=== PATIENT | male | born 1995 | race Caucasian/White ===

== ENCOUNTER 2017-03-08 13:16 | Emergency (ER) | payer OTHER ==
[~2017-03-08] VITALS: Ht 170.2 cm; Wt 69.4 kg
[~2017-03-08 13:16] MED LIST: MIRT7.5T8 PO
[2017-03-08 13:32] VITALS: BP 113/78
[2017-03-08] MEDS ORDERED: PRED20TA PO (13:49)
--- NOTE | 2017-03-08 13:49 | PHYS DOC ---
Past History Past Medical History: Bipolar Past Surgical History: No Surgical History Alcohol Use: None Drug Use: None Adult General Chief Complaint Chief Complaint: SKIN RASH/ABSCESS HPI HPI Patient is a 21-year-old male who presents with an itchy rash on his hands and arms. 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 It has been present for about a week and a half and is not getting better. It is itchy, not painful. It seems to be "spreading." Review of Systems Review of Systems Constitutional: Denies fever or chills [] Integument: As in history of present illness Allergies Allergies Allergies Coded Allergies Type Severity Reaction Last Updated Verified No Known Drug Allergies 05/06/15 No Physical Exam Physical Exam Constitutional: Well developed, well nourished, no acute distress, non-toxic appearance. [] HENT: Normocephalic, atraumatic, bilateral external ears normal, nose normal. [ ] Eyes: conjunctiva normal, no discharge. [] Neck: Normal range of motion, no stridor. [] Skin: Warm, dry, there is a red papular rash present on both hands and arms. There are areas of coalescent rash and areas of linear distribution. It appears consistent with contact dermatitis. Extremities: No tenderness, no cyanosis, no clubbing, ROM intact, no edema. [] Neurologic: Alert and oriented X 3, normal motor function, no focal deficits noted. [] Current Patient Data Vital Signs Vital Signs Date Time Temp Pulse Resp B/P (MAP) Pulse Ox O2 Delivery O2 Flow Rate FiO2 03/08/17 13:32 98.4 109 17 99 EKG EKG [] Radiology/Procedures Radiology/Procedures [] Course & Med Decision Making Course & Med Decision Making Pertinent Labs and Imaging studies reviewed. (See chart for details) 21-year-old male with an itchy rash that appears consistent with poison mónica. He does have possible exposure. See instructions for plan. [] Dragon Disclaimer Dragon Disclaimer This chart was dictated in whole or in part using Voice Recognition software in a busy, high-work load, and often noisy Emergency Department environment. It may contain unintended and wholly unrecognized errors or omissions. Departure Departure: Impression: Primary Impression: Contact dermatitis Disposition: 01 HOME, SELF-CARE Condition: STABLE Referrals: PAUL ROCHE DO (PCP) Patient Instructions: Poison Mónica, [id number] Scripts Prednisone (PREDNISONE) 20 Mg Tablet 2 TAB PO DAILY for poison mónica for 7 Days, #14 TAB Prov: KIMBERLY OLIVARES MD 03/08/17 KIMBERLY OLIVARES MD Mar 08, 2017 13:49
== END 2017-03-08 14:02 | disposition home or self-care (01) ==
LOC: ER 13:16
DX: L25.9 Unspecified contact dermatitis, unspecified cause (principal); F32.9 Major depressive disorder, single episode, unspecified
CPT/HCPCS: 99283

== ENCOUNTER 2018-02-07 03:21 | Emergency (ER) | payer OTHER ==
[~2018-02-07] VITALS: Ht 172.7 cm; Wt 65.8 kg
[~2018-02-07 03:21] MED LIST changes: +PRED20TA PO
--- NOTE | 2018-02-07 03:24 | ED.ADGEN ---
Past History Past Medical History: Bipolar, Schizophrenia Past Surgical History: No Surgical History, Other Smoking: Cigarettes Alcohol Use: None Drug Use: Amphetamine Adult General Chief Complaint Chief Complaint ... " I have not slept for two or really 3 days.. and I have Bipolar.. am getting really manic.. and seeing people and hearing mores code.. ".. " I ve been taking my Seroquel and Lamotrigine.. and I did start on Risperdal.. 0.25 ..but I only have taken two dosages.. I did do some Metadone ..I snorted.. it..... and that may have set me off...". " I see Dr. Louis and Dr. Sanchez.. for my Bipolar...".. " When I don't sleep. .. I start having thoughts.. and start seeing things... " HPI HPI Patient is a 22 year old male who presents with above hx and complaints exacerbation of his manic phase of his bipolar disorder. Patient reports compliance with his medications. Patient reports that he is having hallucinations of people. Patient also believes he has history of code transmissions any head. Pt. had insomnia and increase in agitation. Patient is normally fairly well controlled on his psych meds. Seroquel 25 tid, and Lamotrigine 200 a day. Patient recently started on low dose of Risperadol. 0.25mg. Patient did admit to snorting a drug . Patient denies any suicidal ideation. Patient denies any homicidal ideations. 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 Patient denies any travel. Patient denies any trauma. Patient denies any specific ill contacts. Patient appears to have good family support. Review of Systems Review of Systems Constitutional: Denies fever or chills [] Eyes: Denies change in visual acuity, redness, or eye pain [] HENT: Denies nasal congestion or sore throat [] Respiratory: Denies cough or shortness of breath [] Cardiovascular: No additional information not addressed in HPI [] GI: Denies abdominal pain, nausea, vomiting, bloody stools or diarrhea [] : Denies dysuria or hematuria [] Musculoskeletal: Denies back pain or joint pain [] Integument: Denies rash or skin lesions [] Neurologic: Denies headache, focal weakness or sensory changes []complaints of hallucinations and agitation. Endocrine: Denies polyuria or polydipsia [] All other systems were reviewed and found to be within normal limits, except as documented in this note. Family History Family History Noncontributory Current Medications Current Medications Current Medications Medications (Trade) Dose Ordered Sig/Dory Start Time Stop Time Status Last Admin Dose Admin Diphenhydramine HCl (Benadryl) 50 mg 1X ONCE 02/07/18 04:00 02/07/18 04:01 DC 02/07/18 04:25 50 MG Folic Acid (FOLIC ACID SYRINGE for ER) 5 mg STK-MED ONCE 02/07/18 03:56 02/07/18 03:57 DC Lorazepam (Ativan) 2 mg 1X ONCE 02/07/18 04:30 02/07/18 04:33 DC 02/07/18 04:29 2 MG Multivitamins/ Minerals (Infuvite Adult) 10 ml STK-MED ONCE 02/07/18 03:56 02/07/18 03:57 DC Multivitamins/ Minerals 10 ml/ Folic Acid 1 mg/ Thiamine HCl 100 mg/Sodium Chloride 1,011.1 ml @ 1,000 mls/ hr 1X ONCE 02/07/18 05:00 02/07/18 05:41 DC Multivitamins/ Minerals 10 ml/ Thiamine HCl 100 mg/Folic Acid 1 mg/Lactated Ringer's 1,011.2 ml @ 1,000 mls/ hr Q1H1M 02/07/18 04:30 02/07/18 05:30 Cancel Thiamine HCl 200 mg STK-MED ONCE 02/07/18 03:56 02/07/18 03:57 DC Ziprasidone (Geodon Im) 20 mg 1X ONCE 02/07/18 04:00 02/07/18 04:01 DC 02/07/18 04:25 20 MG Allergies Allergies Allergies Coded Allergies Type Severity Reaction Last Updated Verified No Known Drug Allergies 05/06/15 No Physical Exam Physical Exam Constitutional: Well developed, well nourished, in acute emotional distress, non -toxic appearance. [] HENT: Normocephalic, atraumatic, bilateral external ears normal, oropharynx moist, no oral exudates, nose normal. [] Eyes: PERRLA, EOMI, conjunctiva injected, no discharge. [] Neck: Normal range of motion, no tenderness, supple, no stridor. [] Cardiovascular: Tachycardia Heart rate regular rhythm, no murmur [] Lungs & Thorax: Bilateral breath sounds equal at apex with scattered wheezes auscultation [] Abdomen: Bowel sounds normal, soft, no tenderness, no masses, no pulsatile masses. [] Skin: Warm, dry, no erythema, no rash. [] Back: No tenderness, no CVA tenderness. [] Extremities: No tenderness, no cyanosis, no clubbing, ROM intact, no edema. [] Neurologic: Alert and oriented X 3, normal motor function, normal sensory function, no focal deficits noted. []DTRs +2 patella and brachial. Stitching Machine Feeder Or Offbearer equal. No drift. Patient ambulatory without problems. Psychologic: Affect anxious, judgement normal, mood normal. [] Current Patient Data Vital Signs Vital Signs Date Time Temp Pulse Resp B/P (MAP) Pulse Ox O2 Delivery O2 Flow Rate FiO2 02/07/18 03:49 99.1 104 16 98 Room Air Lab Results Laboratory Tests Test 02/07/18 03:30 02/07/18 03:45 Urine Collection Type Unknown Urine Color Yellow Urine Clarity Clear Urine pH 6.5 Urine Specific [place] 1.010 Urine Protein Neg (NEG-TRACE) Urine Glucose (UA) Neg mg/dL (NEG) Urine Ketones (Stick) Neg mg/dL (NEG) Urine Blood Neg (NEG) Urine Nitrite Neg (NEG) Urine Bilirubin Neg (NEG) Urine Urobilinogen Dipstick 0.2 mg/dL (0.2 mg/dL) Urine Leukocyte Esterase Neg (NEG) Urine RBC 0 /HPF (0-2) Urine WBC 1-4 /HPF (0-4) Urine Squamous Epithelial Cells Occ /LPF Urine Bacteria 0 /HPF (0-FEW) Urine Mucus Slight /LPF Urine Opiates Screen Neg (NEG) Urine Methadone Screen Neg (NEG) Urine Barbiturates Neg (NEG) Urine Phencyclidine Screen Neg (NEG) Urine Amphetamine/Methamphetamine Pos (NEG) Urine Benzodiazepines Screen Neg (NEG) Urine Cocaine Screen Neg (NEG) Urine Cannabinoids Screen Neg (NEG) Urine Ethyl Alcohol Neg (NEG) White Blood Count 7.7 x10^3/uL (4.0-11.0) Red Blood Count 5.02 x10^6/uL (4.30-5.70) Hemoglobin 16.9 g/dL (13.0-17.5) Hematocrit 47.8 % (39.0-53.0) Mean Corpuscular Volume 95 fL (79-100) Mean Corpuscular Hemoglobin 34 pg (25-35) Mean Corpuscular Hemoglobin Concent 35 g/dL (31-37) Red Cell Distribution Width 12.6 % (11.5-14.5) Platelet Count 333 x10^3/uL (140-400) Neutrophils (%) (Auto) 68 % (31-73) Lymphocytes (%) (Auto) 24 % (24-48) Monocytes (%) (Auto) 6 % (0-9) Eosinophils (%) (Auto) 2 % (0-3) Basophils (%) (Auto) 0 % (0-3) Neutrophils # (Auto) 5.2 x10^3uL (1.8-7.7) Lymphocytes # (Auto) 1.8 x10^3/uL (1.0-4.8) Monocytes # (Auto) 0.5 x10^3/uL (0.0-1.1) Eosinophils # (Auto) 0.1 x10^3/uL (0.0-0.7) Basophils # (Auto) 0.0 x10^3/uL (0.0-0.2) Sodium Level 137 mmol/L (136-145) Potassium Level 3.8 mmol/L (3.5-5.1) Chloride Level 103 mmol/L (98-107) Carbon Dioxide Level 29 mmol/L (21-32) Anion Gap 5 (6-14) L Blood Urea Nitrogen 10 mg/dL (8-26) Creatinine 0.9 mg/dL (0.7-1.3) Estimated GFR (Cockcroft-Gault) 104.6 Glucose Level 105 mg/dL (70-99) H Calcium Level 9.1 mg/dL (8.5-10.1) Magnesium Level 2.1 mg/dL (1.8-2.4) Ethyl Alcohol Level < 10 mg/dL (0-10) EKG EKG I interpretation EKG shows a sinus rhythm at 94 bpm. There is right next deviation. Some nonspecific contour abnormalities. But no findings acute STEMI of contralateral changes.[] Radiology/Procedures Radiology/Procedures [] Course & Med Decision Making Course & Med Decision Making Pertinent Labs and Imaging studies reviewed. (See chart for details) Patient avoid further illicit drug use. Patient to take meds as previous directed. Patient follow-up with his counselor Dr. Louis and Dr. Sanchez 's psychiatrist. Patient push fluids. Patient had adequate rest. [] Final Impression Final Impression 1. Bipolar 2. Schizoaffective / Schizophrenic- presentation with exacerbations of Bipolar 3. Hallucinations 4. Tobacco use 5. Substance Abuse Hx. []+ Meth/Amphetamine Urine Test Dragon Disclaimer Dragon Disclaimer This electronic medical record was generated, in whole or in part, using a voice recognition dictation system. AKBAR SCHMIDT MD Feb 07, 2018 03:24
[2018-02-07 03:49] VITALS: BP 125/84
--- NOTE | 2018-02-07 03:52 | EKG ---
[address] [address] Test Date: 2018-02-07 Test Time: 03:48:43 Pat Name: CHANTALE BLANCHARD Department: Room: Gender: M Globe Tester: : 1995 Requested By: AKBAR SCHMIDT Order Number: [id number] Reading MD: Dhiraj Morillo Measurements Intervals Mora Rate: 94 P: 155 PA: 124 QRS: 154 QRSD: 92 T: 151 QT: 330 QTc: 418 Interpretive Statements SINUS RHYTHM MISSING LEADS ABNORMAL RIGHT AXIS DEVIATION QRS(T) CONTOUR ABNORMALITY CONSIDER HIGH LATERAL MYOCARDIAL DAMAGE ABNORMAL ECG Electronically Signed On 02-08-2018 11:24:27 CDT by Dhiraj Morillo
[2018-02-07] MEDS ORDERED: THIAMINE 200 MG/2 ML VIAL. IV ONE (03:56)
[2018-02-07] MEDS ORDERED: FOLIC ACID 5 MG/ML SYRINGE for ER IV ONE (03:56)
[2018-02-07] MEDS ORDERED: MVI, ADULT NO.4 WITH VIT K 10 ML VIAL IV ONE (03:56)
[2018-02-07] MEDS ORDERED: ZIPRASIDONE IM 20 MG VIAL. IM ONE (04:00)
[2018-02-07] MEDS ORDERED: diphenhydrAMINE 50 MG/ML VIAL IV ONE (04:00)
[2018-02-07] MEDS ORDERED: MVI, ADULT NO.4 WITH VIT K 10 ML, FOLIC ACID SYRINGE for ER 1 MG, THIAMINE INJ 100 MG i... IV ONE ×8 (04:00→05:00)
[2018-02-07 04:01] LABS: BASO % 0 % (0-3); EOS # 0.1 x10^3/uL (0.0-0.7); EOS % 2 % (0-3); HEMATOCRIT 47.8 % (39.0-53.0); HEMOGLOBIN 16.9 g/dL (13.0-17.5); LYMPH # 1.8 x10^3/uL (1.0-4.8); LYMPH % 24 % (24-48); MEAN CORPUSCULAR HEMOGLOBIN 34 pg (25-35); MEAN CORPUSCULAR HGB CONC 35 g/dL (31-37); MEAN CORPUSCULAR VOLUME 95 fL (79-100); MONO # 0.5 x10^3/uL (0.0-1.1); MONO % 6 % (0-9); NEUT # 5.2 x10^3uL (1.8-7.7); NEUT % 68 % (31-73); PLATELET COUNT 333 x10^3/uL (140-400); RED BLOOD COUNT 5.02 x10^6/uL (4.30-5.70); RED CELL DISTRIBUTION WIDTH 12.6 % (11.5-14.5); WHITE BLOOD COUNT 7.7 x10^3/uL (4.0-11.0)
[2018-02-07 04:09] LABS: CLARITY,URINE CLEAR; COLOR,URINE YELLOW
[2018-02-07 04:09] LABS: CALCIUM 9.1 mg/dL (8.5-10.1); CREATININE 0.9 mg/dL (0.7-1.3); GFR 104.6; MAGNESIUM 2.1 mg/dL (1.8-2.4); POTASSIUM 3.8 mmol/L (3.5-5.1)
[2018-02-07 04:10] LABS: BACTERIA,URINE 0 /HPF (0-FEW); BILIRUBIN,URINE NEG (NEG); GLUCOSE,URINE NEG (NEG); NITRITE,URINE NEG (NEG); RBC,URINE 0 /HPF (0-2); SQUAMOUS EPITHELIAL CELL,UR OCC /LPF; UROBILINOGEN,URINE 0.2 mg/dL (0.2 mg/dL)
[2018-02-07 04:11] LABS: BARBITURATES NEG (NEG); BENZODIAZEPINES NEG (NEG); CANNABINOIDS NEG (NEG); COCAINE NEG (NEG); METHADONE NEG (NEG); OPIATES NEG (NEG); PHENCYCLIDINE NEG (NEG)
[2018-02-07 04:14] LABS: AMPHETAMINE/METHAMPHETAMINE POS (NEG)
[2018-02-07] MEDS ORDERED: LORazepam 2 MG/ML VIAL IV ONE (04:30)
[2018-02-07] MEDS ORDERED: [UNRECOGNIZED DRUG - REMARK] IV SCH ×4 (04:30)
== END 2018-02-07 05:35 | disposition home or self-care (01) ==
LOC: ER 03:21
DX: F25.0 Schizoaffective disorder, bipolar type (principal); F15.10 Other stimulant abuse, uncomplicated; F17.210 Nicotine dependence, cigarettes, uncomplicated
CPT/HCPCS: 36415; 80048; 80307; 81001; 83735; 85025; 93005; 96372; 96374; 96375; 99285; G0480; J1200; J2060; J3486; G0479

== ENCOUNTER 2018-05-11 11:30 | Emergency (ER) | payer OTHER ==
[~2018-05-11] VITALS: Ht 172.7 cm; Wt 68.0 kg
[2018-05-11 11:49] VITALS: BP 76/84
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
== END 2018-05-11 12:27 | disposition home or self-care (01) ==
LOC: ER 11:30
DX: S60.410A Abrasion of right index finger, initial encounter (principal); S60.412A Abrasion of right middle finger, initial encounter; S60.414A Abrasion of right ring finger, initial encounter; F31.9 Bipolar disorder, unspecified; F20.9 Schizophrenia, unspecified; F17.210 Nicotine dependence, cigarettes, uncomplicated; W22.8XXA Striking against or struck by other objects, initial encounter; Y93.89 Activity, other specified; Y92.89 Other specified places as the place of occurrence of the external cause; Y99.8 Other external cause status
CPT/HCPCS: 29130; 73130; 99283

== ENCOUNTER 2018-08-10 17:11 | Emergency (ER) | payer OTHER ==
[~2018-08-10] VITALS: Ht 172.7 cm; Wt 68.0 kg
[2018-08-10 17:16] VITALS: BP 103/64
[2018-08-10] MEDS ORDERED: FLUORESCEIN 1MG EYE STRIP. OU ONE (17:45)
[2018-08-10] MEDS ORDERED: TETRACAINE 0.5% OPHTH SOLUTION 4ML BOTTLE. OU ONE (17:45)
[2018-08-10] MEDS ORDERED: ERYT1OIN6 OP (17:49)
--- NOTE | 2018-08-10 17:50 | PHYS DOC ---
Past History Past Medical History: Alcoholism, Depression Past Surgical History: Other Smoking: Cigarettes Additional Smoking Information: 05/28 PPD Alcohol Use: None Drug Use: Marijuana Social History Narrative: daily Adult General Chief Complaint Chief Complaint: EYE PROBLEMS HPI HPI Patient is a 23-year-old male who presents to the emergency department for evaluation. 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 He has a foreign body sensation, tried using a Q-tip to remove the foreign body without success. His last tetanus was about 4 months ago. He denies any other complaints at this time. He denies any definite vision changes. Review of Systems Review of Systems Constitutional: Denies fever or chills [] Eyes: No additional information not addressed in HPI [] Current Medications Current Medications Current Medications Medications (Trade) Dose Ordered Sig/Dory Start Time Stop Time Status Last Admin Dose Admin Fluorescein Sodium (Ful-Libertad 1mg) 1 strip 1X ONCE 08/10/18 17:45 08/10/18 17:46 Tetracaine HCl (Tetracaine) 1 drop 1X ONCE 08/10/18 17:45 08/10/18 17:46 Allergies Allergies Allergies Coded Allergies Type Severity Reaction Last Updated Verified No Known Drug Allergies 05/06/15 No Physical Exam Physical Exam PHYSICAL EXAM: HEENT: PERRL, EOMI, there is mild bilateral conjunctival injection. There is a small punctate metallic foreign body seen at 3:00 to the pupil, overlying the iris. This does not overlie the visual axis. There is no other foreign body visualized. On fluorescein examination there is a small corneal abrasion surrounding the visualized foreign body, no other abrasions are noted. NECK: Supple, normal ROM, non-tender. CARDIAC: Regular Rate and Rhythm LUNGS: Clear Bilaterally EXTREMITIES: No acute abnormality. Current Patient Data Vital Signs Vital Signs Date Time Temp Pulse Resp B/P (MAP) Pulse Ox O2 Delivery O2 Flow Rate FiO2 08/10/18 17:16 97.9 105 20 96 Room Air EKG EKG [] Radiology/Procedures Radiology/Procedures [] Course & Med Decision Making Course & Med Decision Making The patient's right eye was anesthetized with tetracaine drops, and an 18-gauge needle was used, and the foreign body was removed on the first attempt to take the object. There appears to be a tiny residual dark area overlying the site, I cannot exclude either a small residual foreign body, or rust ring. I did discuss importance of close ophthalmology follow-up with the patient and return precautions in detail. Dragon Disclaimer Dragon Disclaimer This electronic medical record was generated, in whole or in part, using a voice recognition dictation system. Departure Departure: Impression: Primary Impression: Corneal foreign body Additional Impression: Corneal abrasion Disposition: HOME, SELF-CARE Condition: STABLE Referrals: PAUL ROCHE DO (PCP) Patient Instructions: Eye - Corneal Abrasion, Eye - Corneal Foreign Body Additional Instructions: It is important that you get close follow-up with an miner helper. Call Dr. Juan, tomorrow morning to schedule the first available appointment. Scripts Erythromycin Base (Erythromycin) 1 Gm Oint...g. 1 GM OP Q4HRS W/A for - for 5 Days, #1 MISC Prov: HEMA ESPINO MD 08/10/18 Problem Qualifiers HEMA ESPINO MD Aug 10, 2018 17:50
== END 2018-08-10 17:59 | disposition home or self-care (01) ==
LOC: ER 17:11
DX: T15.01XA Foreign body in cornea, right eye, initial encounter (principal); F10.20 Alcohol dependence, uncomplicated; F32.9 Major depressive disorder, single episode, unspecified; F17.210 Nicotine dependence, cigarettes, uncomplicated; Y90.9 Presence of alcohol in blood, level not specified; Y29.XXXA Contact with blunt object, undetermined intent, initial encounter; Y93.89 Activity, other specified; Y92.89 Other specified places as the place of occurrence of the external cause; Y99.8 Other external cause status
CPT/HCPCS: 65220; 99284-25

== ENCOUNTER 2019-01-08 23:23 | Emergency (ER) | payer OTHER ==
[~2019-01-08] VITALS: Ht 172.7 cm; Wt 62.6 kg
[~2019-01-08 23:23] MED LIST changes: +ERYT1OIN6 OP
--- NOTE | 2019-01-09 00:29 | PHYS DOC ---
Past History Past Medical History: Alcoholism, Depression Past Surgical History: Other Smoking: Cigarettes Alcohol Use: None Drug Use: Marijuana Adult General Chief Complaint Chief Complaint: DRUG ABUSE HPI HPI 23-year-old male presents after drug use. The patient states he took a pill at 9 AM that he thought was ecstasy. This is about 14 hours ago. The patient presents to the emergency room because he does not think it was ecstasy. He feels it might of been an upper and he was sent out what he took. He is feeling "hyped up". He has rapid heartbeat. Patient denies any other drug use today. Patient has a history of drug use. He denies any other symptoms or complaints. Review of Systems Review of Systems Constitutional: Denies fever or chills [] Eyes: Denies change in visual acuity, redness, or eye pain [] HENT: Denies nasal congestion or sore throat [] Respiratory: Denies cough or shortness of breath [] Cardiovascular: No additional information not addressed in HPI [] GI: Denies abdominal pain, nausea, vomiting, bloody stools or diarrhea [] : Denies dysuria or hematuria [] Musculoskeletal: Denies back pain or joint pain [] Integument: Denies rash or skin lesions [] Neurologic: Denies headache, focal weakness or sensory changes [] Endocrine: Denies polyuria or polydipsia [] All other systems were reviewed and found to be within normal limits, except as documented in this note. Current Medications Current Medications Current Medications Medications (Trade) Dose Ordered Sig/Dory Start Time Stop Time Status Last Admin Dose Admin Sodium Chloride 1,000 ml @ 1,000 mls/hr 1X ONCE 01/09/19 00:30 01/09/19 01:29 Allergies Allergies Allergies Coded Allergies Type Severity Reaction Last Updated Verified No Known Drug Allergies 05/06/15 No Physical Exam Physical Exam Constitutional: Well developed, well nourished, no acute distress, non-toxic appearance. [] HENT: Normocephalic, atraumatic, bilateral external ears normal, oropharynx moist, no oral exudates, nose normal. [] Eyes: PERRLA, EOMI, conjunctiva normal, no discharge. [] Neck: Normal range of motion, no tenderness, supple, no stridor. [] Cardiovascular:Heart rate regular rhythm, no murmur [] Lungs & Thorax: Bilateral breath sounds clear to auscultation [] Abdomen: Bowel sounds normal, soft, no tenderness, no masses, no pulsatile masses. [] Skin: Warm, dry, no erythema, no rash. [] Back: No tenderness, no CVA tenderness. [] Extremities: No tenderness, no cyanosis, no clubbing, ROM intact, no edema. [] Neurologic: Alert and oriented X 3, normal motor function, normal sensory functi on, no focal deficits noted. [] Psychologic: Affect pressured, judgement normal, mood normal. [] EKG EKG [] Radiology/Procedures Radiology/Procedures [] Course & Med Decision Making Course & Med Decision Making Pertinent Labs and Imaging studies reviewed. (See chart for details) The patient's toxicology is positive for amphetamine and marijuana. His labs are unremarkable. He is stable for discharge at this time. [] Dragon Disclaimer Dragon Disclaimer This electronic medical record was generated, in whole or in part, using a voice recognition dictation system. Departure Departure: Impression: Primary Impression: Marijuana use Additional Impression: Methamphetamine abuse Disposition: 01 HOME, SELF-CARE Condition: STABLE Referrals: PAUL ROCHE DO (PCP) Patient Instructions: Methamphetamine Abuse, Complications Problem Qualifiers MORGAN RAMON DO Jan 09, 2019 00:29
[2019-01-09 00:31] LABS: BARBITURATES NEG (NEG); BENZODIAZEPINES NEG (NEG); CANNABINOIDS POS (NEG); COCAINE NEG (NEG); METHADONE NEG (NEG); OPIATES NEG (NEG); PHENCYCLIDINE NEG (NEG)
[2019-01-09] MEDS: IV NORMAL SALINE 1,000ML 1,000 ML IV ONE (00:32)
[2019-01-09 00:33] LABS: AMPHETAMINE/METHAMPHETAMINE POS (NEG)
[2019-01-09 00:47] LABS: BILIRUBIN,URINE NEG (NEG); CLARITY,URINE HAZY; COLOR,URINE YELLOW; GLUCOSE,URINE NEG (NEG)
[2019-01-09 00:48] LABS: BACTERIA,URINE FEW /HPF (0-FEW); HYALINE CASTS, URINE FEW /HPF; NITRITE,URINE NEG (NEG); SQUAMOUS EPITHELIAL CELL,UR FEW /LPF; UROBILINOGEN,URINE 0.2 mg/dL (0.2 mg/dL)
[2019-01-09 00:58] LABS: BASO % 0 % (0-3); EOS % 0 % (0-3); HEMATOCRIT 45.4 % (39.0-53.0); HEMOGLOBIN 16.1 g/dL (13.0-17.5); LYMPH # 1.2 x10^3/uL (1.0-4.8); LYMPH % 12 % (24-48); MEAN CORPUSCULAR HEMOGLOBIN 34 pg (25-35); MEAN CORPUSCULAR HGB CONC 35 g/dL (31-37); MEAN CORPUSCULAR VOLUME 96 fL (79-100); MONO # 0.5 x10^3/uL (0.0-1.1); MONO % 5 % (0-9); NEUT # 8.3 x10^3uL (1.8-7.7); NEUT % 83 % (31-73); PLATELET COUNT 295 x10^3/uL (140-400); RED BLOOD COUNT 4.72 x10^6/uL (4.30-5.70); RED CELL DISTRIBUTION WIDTH 12.8 % (11.5-14.5); WHITE BLOOD COUNT 10.1 x10^3/uL (4.0-11.0)
[2019-01-09 01:07] LABS: ALBUMIN 4.2 g/dL (3.4-5.0); ALBUMIN/GLOBULIN RATIO 1.1 (1.0-1.7); CALCIUM 9.5 mg/dL (8.5-10.1); GFR 91.8; POTASSIUM 3.7 mmol/L (3.5-5.1); TOTAL BILIRUBIN 0.7 mg/dL (0.2-1.0)
[2019-01-09 01:12] VITALS: BP 138/93
== END 2019-01-09 01:30 | disposition home or self-care (01) ==
LOC: ER 23:23
DX: F12.10 Cannabis abuse, uncomplicated (principal); F15.10 Other stimulant abuse, uncomplicated; F17.210 Nicotine dependence, cigarettes, uncomplicated; F10.20 Alcohol dependence, uncomplicated; Y90.9 Presence of alcohol in blood, level not specified
CPT/HCPCS: 36415; 80053; 80307; 81001; 85025; 87086; 96374; 99284; J2060; 96361; J7030

== ENCOUNTER 2020-11-19 22:56 | Emergency (ER) | payer SELFPAY ==
[~2020-11-19] VITALS: Ht 172.7 cm; Wt 63.6 kg
[2020-11-19] MEDS ORDERED: LIDOCAINE/EPI/TETRACAINE TOPICAL GEL 3 ML. TP ONE ×2 (23:15→23:24)
[2020-11-20 00:55] VITALS: BP 91/42
--- NOTE | 2020-11-20 00:55 | PHYS DOC ---
Past History Past Medical History: Bipolar, Depression Past Surgical History: No Surgical History Smoking: Cigarettes Alcohol Use: None Drug Use: Amphetamine, Marijuana, Other Adult General Chief Complaint Chief Complaint: LOWEREXTREMITY INJURY HPI HPI Patient is a 25-year-old male, up-to-date on tetanus who presents for ankle laceration. States he was out drinking with friends, and was getting ready get into his truck and stepped wrong and scraped his ankle on the curb. Denies any other injuries. States since he has been drinking vodka and was intoxicated his friend said to be better to call the ambulance to bring him to the emergency department instead of letting him drive. Review of Systems Review of Systems Review of systems otherwise unremarkable except noted in HPI Current Medications Current Medications Current Medications Medications (Trade) Dose Ordered Sig/Dory Start Time Stop Time Status Last Admin Dose Admin Lidocaine/ Epinephrine (Let (Erpc-Wbhdpyv-Rgyuc) Gel) 3 ml STK-MED ONCE 11/19/20 23:24 11/19/20 23:25 DC Allergies Allergies Allergies Coded Allergies Type Severity Reaction Last Updated Verified No Known Drug Allergies 05/06/15 No Physical Exam Physical Exam Constitutional: Well developed, well nourished, no acute distress, non-toxic appearance. [] HENT: Normocephalic, atraumatic, Eyes: PERRLA, EOMI, conjunctiva normal, no discharge. [] Neck: Normal range of motion, Cardiovascular:Heart rate regular rhythm, no murmur [] Lungs & Thorax: Bilateral breath sounds clear to auscultation [] Skin: Warm, dry, no erythema, no rash. [] Extremities: Mild tenderness about the medial right lower extremity just superior to medial malleolus with 4 cm linear laceration, superficial, bleeding controlled. Neurologic: Alert and oriented X 3,no focal deficits noted. [] Psychologic: Affect normal, judgement normal, mood normal. [] Current Patient Data Vital Signs Vital Signs Date Time Temp Pulse Resp B/P (MAP) Pulse Ox O2 Delivery O2 Flow Rate FiO2 11/20/20 00:07 57 18 90/67 (75) 97 Room Air 11/19/20 22:56 98.6 Lab Results Laboratory Tests Test 11/19/20 23:04 Glucose (Fingerstick) 100 mg/dL (70-99) H EKG EKG [] Radiology/Procedures Radiology/Procedures Wound cleaned with sterile water. L ET placed for topical anesthesia. Anesthesia achieved. 5 sutures placed of 4-0 Ethilon without complication. Wound cleaned with Betadine. Bandaged. [] Heart Score C/O Chest Pain: No Risk Factors: Risk Factors: DM, Current or recent (<one month) smoker, HTN, HLP, family history of CAD, obesity. Risk Scores: Risk Factors: DM, Current or recent (<one month) smoker, HTN, HLP, family history of CAD, obesity. Course & Med Decision Making Course & Med Decision Making Patient is a 25-year-old male who presents with right ankle laceration. Vital signs not concerning. Physical exam noted above. Patient up-to-date on tetanus vaccination. Wound cleaned, anesthetized and sutured without complication. Discussed all findings with patient advised on pain control at home. Advised to call primary care physician or establish care first thing in the morning to set up a follow-up visit. Gastric return precautions to the ED. Patient grateful, verbalized understanding and agreed with plan of discharge. [] Dragon Disclaimer Dragon Disclaimer This electronic medical record was generated, in whole or in part, using a voice recognition dictation system. Departure Departure: Impression: Primary Impression: Alcohol intoxication Additional Impression: Laceration of lower leg Disposition: 01 HOME / SELF CARE / HOMELESS Condition: GOOD Referrals: PAUL ROCHE DO (PCP) Patient Instructions: Laceration Care, Adult Additional Instructions: Thank you for coming into the emergency department tonight and allowing us to take care of you. Please read all the attached information very carefully to go back over what we discussed. You can use Tylenol and ibuprofen as needed at home for pain control including ice. Please call your primary care physician first thing in the morning to update on ED visit and set up a follow-up appointment within 7 to 10 days for a wound check and suture removal. Please do not wait longer than 10 days as this could cause complications as discussed. If you are unable to get into your primary care physician you can return to the emergency department in 7 to 10 days for a wound check and suture removal. Please come back to the emergency department with new or concerning symptoms as discussed. Problem Qualifiers QAMAR CHRISTIANSON MD Nov 20, 2020 00:55
[2020-11-20] MEDS ORDERED: CEPHALEXIN 250 MG CAPSULE PO ONE (01:00)
== END 2020-11-20 01:05 | disposition home or self-care (01) ==
LOC: ER 22:56
DX: S91.011A Laceration without foreign body, right ankle, initial encounter (principal); F10.129 Alcohol abuse with intoxication, unspecified; F17.210 Nicotine dependence, cigarettes, uncomplicated; F15.10 Other stimulant abuse, uncomplicated; F12.10 Cannabis abuse, uncomplicated; W22.8XXA Striking against or struck by other objects, initial encounter; Y93.89 Activity, other specified; Y92.89 Other specified places as the place of occurrence of the external cause; Y99.8 Other external cause status; Y90.8 Blood alcohol level of 240 mg/100 ml or more
CPT/HCPCS: 12002; 82947; 99283

== ENCOUNTER 2020-11-27 07:47 | Emergency (ER) | payer SELFPAY ==
[~2020-11-27] VITALS: Ht 172.7 cm; Wt 67.0 kg
[2020-11-27 07:53] VITALS: BP 127/80
--- NOTE | 2020-11-27 08:11 | PHYS DOC ---
Past History Past Medical History: Bipolar, Depression Past Surgical History: Other Additional Past Surgical Histo: Labrum repair Smoking: Cigarettes Alcohol Use: Occasionally Drug Use: Amphetamine, Marijuana, Other General Adult EDM: Chief Complaint: SUTURE/STAPLE REMOVAL HPI: HPI: 25-year-old male presents the emergency room for suture removal. He had 4 sutures placed about a week ago. He is here to have them removed and get a work note saying the back to work. He has no other complaints this time. Review of Systems: Review of Systems: Constitutional: Denies fever or chills Eyes: Denies change in visual acuity HENT: Denies nasal congestion or sore throat Respiratory: Denies cough or shortness of breath Cardiovascular: Denies chest pain or edema GI: Denies abdominal pain, nausea, vomiting, bloody stools or diarrhea : Denies dysuria Musculoskeletal: Denies back pain or joint pain Integument: Stitches right ankle Neurologic: Denies headache, focal weakness or sensory changes Endocrine: Denies polyuria or polydipsia Lymphatic: Denies swollen glands Psychiatric: Denies depression or anxiety Allergies: Allergies: Allergies Coded Allergies Type Severity Reaction Last Updated Verified No Known Drug Allergies 11/27/20 No Physical Exam: PE: Constitutional: Well developed, well nourished, no acute distress, non-toxic appearance. [] HENT: Normocephalic, atraumatic, bilateral external ears normal, oropharynx moist, no oral exudates, nose normal. [] Eyes: PERRLA, EOMI, conjunctiva normal, no discharge. [] Neck: Normal range of motion, no tenderness, supple, no stridor. [] Cardiovascular:Heart rate regular rhythm, no murmur [] Lungs & Thorax: Bilateral breath sounds clear to auscultation [] Abdomen: Bowel sounds normal, soft, no tenderness, no masses, no pulsatile masses. [] Skin: 4 sutures in the medial right ankle with no signs of infection [] Back: No tenderness, no CVA tenderness. [] Extremities: No tenderness, no cyanosis, no clubbing, ROM intact, no edema. [] Neurologic: Alert and oriented X 3, normal motor function, normal sensory function, no focal deficits noted. [] Psychologic: Affect normal, judgement normal, mood normal. [] Current Patient Data: Vital Signs: Vital Signs Date Time Temp Pulse Resp B/P (MAP) Pulse Ox O2 Delivery O2 Flow Rate FiO2 11/27/20 07:53 97.2 82 16 127/80 Room Air EKG: EKG: [] Radiology/Procedures: Radiology/Procedures: [] Heart Score: C/O Chest Pain: N/A Risk Factors: Risk Factors: DM, Current or recent (<one month) smoker, HTN, HLP, family history of CAD, obesity. Risk Scores: Score 0 - 3: 2.5% MACE over next 6 weeks - Discharge Home Score 4 - 6: 20.3% MACE over next 6 weeks - Admit for Clinical Observation Score 7 - 10: 72.7% MACE over next 6 weeks - Early Invasive Strategies Course & Med Decision Making: Course & Med Decision Making Pertinent Labs and Imaging studies reviewed. (See chart for details) The patient's skin looks good. His sutures were ready to be removed. The removed without difficulty. He is stable for discharge at this time. [] Dragon Disclaimer: Dragon Disclaimer: This electronic medical record was generated, in whole or in part, using a voice recognition dictation system. Departure Departure: Impression: Primary Impression: Encounter for removal of sutures Disposition: HOME / SELF CARE / HOMELESS Condition: STABLE Referrals: PCP,NO (PCP) Patient Instructions: Suture Removal-Brief MORGAN RAMON DO Nov 27, 2020 08:11
== END 2020-11-27 08:15 | disposition home or self-care (01) ==
LOC: ER 07:47
DX: S91.011D Laceration without foreign body, right ankle, subsequent encounter (principal); F31.9 Bipolar disorder, unspecified; F17.210 Nicotine dependence, cigarettes, uncomplicated; X58.XXXD Exposure to other specified factors, subsequent encounter
CPT/HCPCS: 99281

== ENCOUNTER 2021-03-04 14:02 | Emergency (ER) | payer SELFPAY ==
[~2021-03-04] VITALS: Ht 172.7 cm; Wt 67.0 kg
[2021-03-04 14:04] VITALS: BP 122/83
[2021-03-04 15:29] LABS: BASO % 1 % (0-3); EOS # 0.1 x10^3/uL (0.0-0.7); EOS % 1 % (0-3); HEMATOCRIT 46.8 % (39.0-53.0); HEMOGLOBIN 16.2 g/dL (13.0-17.5); LYMPH # 1.7 x10^3/uL (1.0-4.8); LYMPH % 27 % (24-48); MEAN CORPUSCULAR HEMOGLOBIN 33 pg (25-35); MEAN CORPUSCULAR HGB CONC 35 g/dL (31-37); MEAN CORPUSCULAR VOLUME 96 fL (79-100); MONO # 0.3 x10^3/uL (0.0-1.1); MONO % 4 % (0-9); NEUT # 4.3 x10^3uL (1.8-7.7); NEUT % 67 % (31-73); PLATELET COUNT 305 x10^3/uL (140-400); RED BLOOD COUNT 4.87 x10^6/uL (4.30-5.70); RED CELL DISTRIBUTION WIDTH 12.8 % (11.5-14.5); WHITE BLOOD COUNT 6.4 x10^3/uL (4.0-11.0)
[2021-03-04 15:38] LABS: CALCIUM 8.8 mg/dL (8.5-10.1); CREATININE 0.8 mg/dL (0.7-1.3); GFR 116.9; POTASSIUM 3.3 mmol/L (3.5-5.1)
[2021-03-04 15:43] LABS: ALBUMIN 3.9 g/dL (3.4-5.0); TOTAL BILIRUBIN 0.3 mg/dL (0.2-1.0); TOTAL PROTEIN 7.7 g/dL (6.4-8.2)
[2021-03-04 15:44] LABS: ACETAMIN < 2 mcg/mL (10-30); ETHANOL 180 mg/dL (0-10); SALIC < 2.8 mg/dL (2.8-20.0)
--- NOTE | 2021-03-04 16:01 | PHYS DOC ---
Past History Past Medical History: Bipolar, Depression Past Surgical History: Other Additional Past Surgical Histo: Labrum repair Smoking: Cigarettes Alcohol Use: Rarely Drug Use: Amphetamine, Marijuana, Other General Adult EDM: Chief Complaint: PSYCH EVALUATION HPI: HPI: Patient is a 25 year old male with history of bipolar and depression who presents with EMS after reportedly being agitated with significant other. He has no specific complaints. States that he is here because of "dating and hating" Denies any injuries. Does endorse drinking approximately 375 mL of whiskey today. Denies other drug use. Denies SI and HI on repeated questioning. Denies hallucinations. Denies any need to speak with somebody about his drinking. States he would like to leave. Review of Systems: Review of Systems: Constitutional: Denies fever or chills Eyes: Denies change in visual acuity HENT: Denies nasal congestion or sore throat Respiratory: Denies cough or shortness of breath Cardiovascular: Denies chest pain or edema GI: Denies abdominal pain, nausea, vomiting, bloody stools or diarrhea : Denies dysuria Musculoskeletal: Denies back pain or joint pain Integument: Denies rash Neurologic: Denies headache, focal weakness or sensory changes Endocrine: Denies polyuria or polydipsia Lymphatic: Denies swollen glands Psychiatric: Denies SI/HI. Denies depression or anxiety Allergies: Allergies: Allergies Coded Allergies Type Severity Reaction Last Updated Verified No Known Drug Allergies 11/27/20 No Physical Exam: PE: Constitutional: Well developed, well nourished, no acute distress, non-toxic appearance. [] HENT: No evidence of trauma. Does have dirt dried to his forehead and his hair. Eyes: PERRLA, EOMI, pupils approximately 3 mm bilaterally. Neck: Normal range of motion, no tenderness, supple, no stridor. [] Cardiovascular:Heart rate regular rhythm, no murmur [] Lungs & Thorax: Bilateral breath sounds clear to auscultation [] Abdomen: Bowel sounds normal, soft, no tenderness, no masses, no pulsatile masses. [] Skin: Warm, dry, no erythema, no rash. [] Back: No tenderness, no CVA tenderness. [] Extremities: No tenderness, no cyanosis, no clubbing, ROM intact, no edema. [] Neurologic: Slurring speech, appears intoxicated. He is however, alert and oriented. Moving all extremities without sensory deficit. Cranial nerves grossly intact. Psychologic: Denies SI/HI. Denies depression or anxiety. Current Patient Data: Labs: Laboratory Tests Test 03/04/21 15:03 White Blood Count 6.4 x10^3/uL (4.0-11.0) Red Blood Count 4.87 x10^6/uL (4.30-5.70) Hemoglobin 16.2 g/dL (13.0-17.5) Hematocrit 46.8 % (39.0-53.0) Mean Corpuscular Volume 96 fL (79-100) Mean Corpuscular Hemoglobin 33 pg (25-35) Mean Corpuscular Hemoglobin Concent 35 g/dL (31-37) Red Cell Distribution Width 12.8 % (11.5-14.5) Platelet Count 305 x10^3/uL (140-400) Neutrophils (%) (Auto) 67 % (31-73) Lymphocytes (%) (Auto) 27 % (24-48) Monocytes (%) (Auto) 4 % (0-9) Eosinophils (%) (Auto) 1 % (0-3) Basophils (%) (Auto) 1 % (0-3) Neutrophils # (Auto) 4.3 x10^3uL (1.8-7.7) Lymphocytes # (Auto) 1.7 x10^3/uL (1.0-4.8) Monocytes # (Auto) 0.3 x10^3/uL (0.0-1.1) Eosinophils # (Auto) 0.1 x10^3/uL (0.0-0.7) Basophils # (Auto) 0.0 x10^3/uL (0.0-0.2) Sodium Level 143 mmol/L (136-145) Potassium Level 3.3 mmol/L (3.5-5.1) L Chloride Level 108 mmol/L (98-107) H Carbon Dioxide Level 25 mmol/L (21-32) Anion Gap 10 (6-14) Blood Urea Nitrogen 9 mg/dL (8-26) Creatinine 0.8 mg/dL (0.7-1.3) Estimated GFR (Cockcroft-Gault) 116.9 BUN/Creatinine Ratio 11 (6-20) Glucose Level 85 mg/dL (70-99) Calcium Level 8.8 mg/dL (8.5-10.1) Total Bilirubin 0.3 mg/dL (0.2-1.0) Aspartate Amino Transferase (AST) 19 U/L (15-37) Alanine Aminotransferase (ALT) 27 U/L (16-63) Alkaline Phosphatase 62 U/L (46-116) Total Protein 7.7 g/dL (6.4-8.2) Albumin 3.9 g/dL (3.4-5.0) Albumin/Globulin Ratio 1.0 (1.0-1.7) Salicylates Level < 2.8 mg/dL (2.8-20.0) L Salicylate Last Dose Date Unknown Salicylate Last Dose Time Unknown Acetaminophen Level < 2 mcg/mL (10-30) L Acetaminophen Last Dose Date Unknown Acetaminophen Last Dose Time Unknown Ethyl Alcohol Level 180 mg/dL (0-10) H Vital Signs: Vital Signs Date Time Temp Pulse Resp B/P (MAP) Pulse Ox O2 Delivery O2 Flow Rate FiO2 03/04/21 14:04 97.9 100 18 122/83 (96) 98 Room Air EKG: EKG: Sinus rhythm. Rate 58. Normal axis. Normal intervals. No acute ischemic changes. [] Radiology/Procedures: Radiology/Procedures: [] Heart Score: C/O Chest Pain: No Risk Factors: Risk Factors: DM, Current or recent (<one month) smoker, HTN, HLP, family history of CAD, obesity. Risk Scores: Score 0 - 3: 2.5% MACE over next 6 weeks - Discharge Home Score 4 - 6: 20.3% MACE over next 6 weeks - Admit for Clinical Observation Score 7 - 10: 72.7% MACE over next 6 weeks - Early Invasive Strategies Course & Med Decision Making: Course & Med Decision Making Pertinent Labs and Imaging studies reviewed. (See chart for details) Patient a 25-year-old male with history of bipolar depression who presents after reportedly being agitated after an argument with his significant other. Arrives the emergency department afebrile and hemodynamically stable. He is covered in dried dirt, but does not have any evidence of injury. He is visibly intoxicated, admits to alcohol use today. Serum alcohol 180. He repetitively denies SI/HI to multiple members of staff including myself. Initial plan was for PAT evaluation, because a family member expressed concern that he had made suicidal statements earlier in the day. Patient initially agreeable, but eloped before psychiatric evaluation. He did not have access to a motor vehicle, and told 1 staff member as he was walking out that he plan on walking home. That staff member relayed to me that he was now no longer slurring his speech, and walk with a steady gait. Given that he repetitively denied SI/HI, I do not feel that I could hold him against his will for further evaluation. Therefore, I do not feel that he needs to be brought back to the emergency department against his will. Dragon Disclaimer: Dragon Disclaimer: This electronic medical record was generated, in whole or in part, using a voice recognition dictation system. Departure Departure: Impression: Primary Impression: Alcohol intoxication Disposition: 07 LEFT AWOL/ELOPED Condition: STABLE Referrals: PCP,NO (PCP) MICHELLE HARPER MD Mar 04, 2021 16:01
--- NOTE | 2021-03-04 16:06 | EKG ---
[address] [address] Test Date: 2021-03-04 Test Time: 15:21:41 Pat Name: CHANTALE BLANCHARD Department: Room: Gender: M Intern Architect: GERALD : [id number] Requested By: MICHELLE HARPER Order Number: [id number] Reading MD: Dami Berrios MD Measurements Intervals Morrice Rate: 58 P: 0 CO: 148 QRS: 36 QRSD: 90 T: 50 QT: 364 QTc: 360 Interpretive Statements SINUS RHYTHM Electronically Signed On 03-11-2021 12:02:58 CDT by Dami Berrios MD
== END 2021-03-04 15:50 | disposition left against medical advice (07) ==
LOC: ER 14:02
DX: F10.129 Alcohol abuse with intoxication, unspecified (principal); F41.9 Anxiety disorder, unspecified; F32.9 Major depressive disorder, single episode, unspecified; Y90.9 Presence of alcohol in blood, level not specified; F12.10 Cannabis abuse, uncomplicated; F15.10 Other stimulant abuse, uncomplicated; F17.210 Nicotine dependence, cigarettes, uncomplicated
CPT/HCPCS: 36415; 80053; 80329; 85025; 93005; 99284; G0480

== ENCOUNTER 2021-04-23 04:38 | Emergency (ER) | payer OTHER ==
[~2021-04-23] VITALS: Ht 172.7 cm; Wt 65.6 kg
[2021-04-23] MEDS ORDERED: NEOMY/BACITR/POLYMYXIN OINT PACKET. TP ONE (05:15)
--- NOTE | 2021-04-23 06:06 | PHYS DOC ---
Past History Past Medical History: Bipolar, Depression (REN DE JESUS DO) Past Surgical History: Other Additional Past Surgical Histo: Labrum repair (left) (REN DE JESUS DO) Smoking: Cigarettes Additional Smoking Information: 2 cigarettes/day Alcohol Use: Occasionally Additional Alcohol Information: Vodka Drug Use: Amphetamine, Marijuana, Methamphetamine, Other Social History Narrative: Ecstasy - last took 1 week ago (REN DE JESUS DO) General Adult EDM: Chief Complaint: MECHANICAL FALL HPI: HPI: 25-year-old male presents by private vehicle after driving himself here. Patient reports right-sided facial pain that started after a fall that occurred at approximately 0400 this morning. Patient reports he tripped while exiting his door. Patient reports he did strike his face on the concrete and thinks he might of lost consciousness. Patient does report use of methamphetamines and did drink alcohol yesterday evening. Patient reportedly is also supposed to be taking Antabuse. Patient reports tetanus shot less than 5 years ago. Denies epistaxis. Denies neck pain. (REN DE JESUS DO) Review of Systems: Review of Systems: Constitutional: Denies fever or chills Eyes: Denies redness or eye pain HENT: Denies nasal congestion or epistaxis Respiratory: Denies cough or shortness of breath Cardiovascular: Denies chest pain or palpitations GI: Denies abdominal pain, nausea, or vomiting Musculoskeletal: Denies back pain or joint pain Integument: Denies laceration; reports right sided abrasions Neurologic: Denies headache, focal weakness or sensory changes Complete systems were reviewed and found to be within normal limits, except as documented in this note. (REN DE JESUS DO) Current Medications: Current Meds: Current Medications Medications (Trade) Dose Ordered Sig/Dory Start Time Stop Time Status Last Admin Dose Admin Neomycin/ Polymyxin/ Bacitracin (Triple Antibiotic Ointment) 1 pkt 1X ONCE 04/23/21 05:15 04/23/21 05:20 DC 04/23/21 05:50 1 PKT (REN DE JESUS DO) Allergies: Allergies: Allergies Coded Allergies Type Severity Reaction Last Updated Verified No Known Drug Allergies 11/27/20 No (REN DE JESUS DO) Physical Exam: PE: Constitutional: Well developed, well nourished, no acute distress, non-toxic appearance HENT: Normocephalic, right-sided facial abrasions noted, TMs clear bilaterally, nares clear bilaterally Eyes: PERRL, EOMI, conjunctiva normal, no discharge, no nystagmus Neck: Normal range of motion, no tenderness, supple Lungs & Thorax: No respiratory distress, equal chest rise and fall Skin: Warm, dry, no erythema, no rash Back: No tenderness, no CVA tenderness Extremities: No tenderness, ROM intact, no edema Neurologic: Alert and oriented X 3, normal motor function, normal sensory function, no focal deficits noted Psychologic: Affect normal, judgment normal (REN DE JESUS DO) Current Patient Data: Vital Signs: Vital Signs Date Time Temp Pulse Resp B/P (MAP) Pulse Ox O2 Delivery O2 Flow Rate FiO2 04/23/21 04:43 98.3 136 18 139/90 (106) 99 Room Air (REN DE JESUS DO) EKG: EKG: [] (REN DE JESUS DO) Radiology/Procedures: Radiology/Procedures: [] (REN DE JESUS DO) Radiology/Procedures: EXAM: CT head and maxillofacial bones without contrast INDICATION: Fall, loss of consciousness. Right-sided facial injury. COMPARISON: CT head 05/06/2015 TECHNIQUE: Axial CT imaging through the head and maxillofacial bones without intravenous contrast. Sagittal and coronal reformats were obtained. One or more of the following individualized dose reduction techniques were utilized for this examination: 1. Automated exposure control 2. Adjustment of the mA and/or kV according to patient size 3. Use of iterative reconstruction technique. FINDINGS: CT head: The ventricles and sulci are normal. Carrasco-white matter differentiation is maintained. There is no intracranial hemorrhage, acute infarct, or mass lesion. Basal cisterns are clear. The skull and scalp are intact. Paranasal sinuses and mastoid air cells are clear. Globes and orbits are intact. CT facial bone: No acute fracture of the facial bones. There is a small mucous retention cyst in the right maxillary sinus. Minimal mucosal thickening in the left maxillary sinus. Remaining paranasal sinuses and mastoid air cells are clear. Globes and orbits are intact. Temporomandibular joints are normally aligned. There is a mild right facial soft tissue contusion. IMPRESSION: 1. No acute intracranial abnormality or acute fracture of the facial bones. 2. Mild right facial soft tissue contusion. Electronically signed by: Steffi Lei MD (04/23/2021 6:08 AM) UI-SAVE (MARTHA PEREIRA DO) Heart Score: C/O Chest Pain: N/A (REN DE JESUS DO) C/O Chest Pain: No (MARTHA PEREIRA DO) Course & Med Decision Making: Course & Med Decision Making Pertinent Imaging studies reviewed. (See chart for details) Patient presents status post fall at home. Patient does have history of alcohol use last night as well as use of methamphetamines recently. Tetanus u p-to-date. Patient appears neurologically intact. Denies midline cervical spine tenderness. CT head/maxillofacial pending. Wounds cleaned and dressed. 0600-signout given to Dr. Pereira for further evaluation and final disposition. Discussed current findings and plan with patient, who acknowledges understanding and agreement. (REN DE JESUS DO) Course & Med Decision Making I obtained complete care of patient after comprehensive signout from off going physician I repeated aspects of history and physical exam and reviewed all comprehensive ER work-up findings with patient, no indication for further diagnostic work-up, hospitalization or further ER intervention Supportive care practices and close outpatient follow-up advised. Illicit drug abuse cessation and strict return precautions discussed at length. (MARTHA PEREIRA DO) Dragon Disclaimer: Dragon Disclaimer: This electronic medical record was generated, in whole or in part, using a voice recognition dictation system. (REN DE JESUS DO) Departure Departure: Impression: Primary Impression: Facial abrasion Qualified Codes: S00.81XA - Abrasion of other part of head, initial encounter Additional Impression: Facial contusion Qualified Codes: S00.83XA - Contusion of other part of head, initial encounter Disposition: HOME / SELF CARE / HOMELESS Condition: STABLE Referrals: PCP,NO (PCP) Additional Instructions: You were seen for pain. You should return to the ED if you develop worsening pain, fever, numbness, tingling, weakness, or any other new or concerning symptoms. Your pain is most likely due to a contusion and should improve with ice, ibuprofen and/or Tylenol, stretching, and activity. If it does not improve you should follow up with a primary care doctor. REN DE JESUS DO Apr 23, 2021 06:06 MARTHA PEREIRA DO Apr 23, 2021 06:19
--- NOTE | 2021-04-23 06:10 | RAD ---
EXAM: CT head and maxillofacial bones without contrast INDICATION: Fall, loss of consciousness. Right-sided facial injury. COMPARISON: CT head 05/06/2015 TECHNIQUE: Axial CT imaging through the head and maxillofacial bones without intravenous contrast. Sa gittal and coronal reformats were obtained. One or more of the following individualized dose reduction techniques were utilized for this examinat ion: 1. Automated exposure control 2. Adjustment of the mA and/or kV according to patient size 3. Use of iterative reconstruction technique. FINDINGS: CT head: The ventricles and sulci are normal. Carrasco-white matter differentiation is maintained. There is no in tracranial hemorrhage, acute infarct, or mass lesion. Basal cisterns are clear. The skull and scalp a re intact. Paranasal sinuses and mastoid air cells are clear. Globes and orbits are intact. CT facial bone: No acute fracture of the facial bones. There is a small mucous retention cyst in the right maxillary sinus. Minimal mucosal thickening in the left maxillary sinus. Remaining paranasal sinuses and mastoi d air cells are clear. Globes and orbits are intact. Temporomandibular joints are normally aligned. T here is a mild right facial soft tissue contusion. IMPRESSION: 1. No acute intracranial abnormality or acute fracture of the facial bones. 2. Mild right facial soft tissue contusion. Electronically signed by: Steffi Lei MD (04/23/2021 6:08 AM) [facility]
[2021-04-23 06:24] VITALS: BP 132/80
== END 2021-04-23 06:26 | disposition home or self-care (01) ==
LOC: ER 04:38
DX: S00.83XA Contusion of other part of head, initial encounter (principal); F31.9 Bipolar disorder, unspecified; F17.210 Nicotine dependence, cigarettes, uncomplicated; W01.198A Fall on same level from slipping, tripping and stumbling with subsequent striking against other object, initial encounter; Y93.89 Activity, other specified; Y92.89 Other specified places as the place of occurrence of the external cause; Y99.8 Other external cause status
CPT/HCPCS: 70450; 70486; 99284